=== PATIENT | male | born 1965 ===

== ENCOUNTER 2018-02-05 14:18 | Emergency (ER) | payer BC, MEDICAID ==
[2018-02-05 16:22] LABS: ABS Basophils 0.1 10^3/ul (0-0.2); ABS Eosinophils 0.1 10^3/ul (0-0.6); ABS Lymphocytes 1.9 10^3/ul (1.0-4.8); ABS Monocytes 0.7 10^3/ul (0-0.8); ABS Neutrophils 4.7 10^3/ul (1.5-7.7); ABS Nucleated RBC 0 10^3/ul; Eosinophil % 1.7 % (0-6); Hematocrit 40 % (42-52); Hemoglobin 13.7 g/dl (14.0-18.0); Mean Corpuscular HGB Conc 34 g/dl (31-36); Mean Corpuscular Hemoglobin 29 pg (27-31); Mean Corpuscular Volume 85 fL (80-94); Mean Platelet Volume 8.1 um3 (7.4-10.4); Nucleated Red Blood Cells % 0.1; Platelet Count 225 10^3/ul (150-450); Red Blood Count 4.73 10^6/ul (4.00-5.40); Red Cell Distribution Width 14 % (10.5-15); White Blood Count 7.5 10^3/ul (3.5-10.8)
[2018-02-05 16:30] LABS: INR 0.94 (0.77-1.02)
[2018-02-05 16:56] LABS: EGFR Non-African American 63.6 (>60)
[2018-02-05] MEDS ORDERED: Iohexol 350* (CONTRAST) 500 ML MDV IV ONE (17:01)
--- NOTE | 2018-02-05 17:54 | RAD ---
INDICATION: Headaches COMPARISON: CT brain April 11, 2016 TECHNIQUE: Axial source images were acquired with coronal and sagittal reconstructions. CT angiographic technique was utilized with injection of 80 mL Omnipaque 350. FINDINGS: Aortic arch: There are no gross CT angiogram abnormalities of the arch or the great vessels arising from the arch. There is limited contrast opacification. Right carotid: The common carotid artery, carotid bifurcation, extracranial portions of the internal carotid artery, carotid artery at the skull base, carotid siphon, and carotid termination appear widely patent. There is limited contrast opacification of the common carotid artery. No abnormalities are seen. Left carotid:The common carotid artery, carotid bifurcation, extracranial portions of the internal carotid artery, carotid artery at the skull base, carotid siphon, and carotid termination appear widely patent. There is limited contrast opacification of the common carotid artery. No abnormalities are seen. Right middle and anterior cerebral arteries: There are no CT angiographic abnormalities of the middle or anterior cerebral arteries. Left middle and anterior cerebral arteries: There are no CT angiographic abnormalities of the middle or anterior cerebral arteries Right vertebral: The CT angiographic appearance of the vertebral artery is normal. Left vertebral: The CT angiographic appearance of the vertebral artery is normal. Basilar artery: The basilar artery and basilar tip appear normal. Posterior cerebral arteries: The distal distribution of the right and left posterior cerebral arteries is normal. [place] of [place]: The CT angiographic appearance of the [place] of [place] is normal. Source images show no evidence of mass or adenopathy within the neck. There is chronic maxillary antral and ethmoid sinus disease. There are no focal brain parenchymal abnormalities or abnormal areas of enhancement. IMPRESSION: 1. Normal noncontrast CT of the brain 2. Normal CT angiogram of the head. 3. Limited CT angiogram of the neck below the level of the carotid bifurcations. No gross abnormalities of the great vessels arising from the arch or either common carotid artery. The carotid bifurcations and internal carotid arteries to the skull base are normal bilaterally. 4. Sinusitis. 5. Findings discussed with emergency department. CPT II Codes: 3100F PQRS
[2018-02-05 18:56] VITALS: BP 122/78
--- NOTE | 2018-02-06 06:57 | ED ---
Josef Garcia Angela, scribed for Edilberto Andre MD on 02/05/18 at 1536 . Headache - HPI Summary HPI Summary: This pt is a 52 y/o male presenting to [facility] c/o headache for the past 1 week. Pt states that since Monday his pain has been more constant described as "dull throbbing" with intermittent sharp piercing pain on the right side of his head. He describes his headache as pressure and heaviness behind his right eye. Pt reports it is more comfortable closing right eye than opening it. His pain is worse with laying on the right side. His pain is not aggravated by position change. Additionally pt reports pins and needles around R side of head (which is new for him), more than usual slurred speech, numbness on the right side of his face ("almost like I came off from the dentist"), and "fuzzy" vision. Denies photophobia, nausea, vomiting. He notes he has been reading more than usual and does use reading glasses. Last time he had headaches was during the last week in December. 2 years ago on March 13 pt had an episode where he had sinus infection symptoms and was found to have a brain bleed. His neurologist is Dr. Bowman. Pt was advised if he had similar symptoms he should come to the ED. Pt is currently on 40 mg of Citalopram, 20 mg of Lisinopril, Zinc and D3 vitamins. - History Of Current Complaint Chief Complaint: EDHeadache Stated Complaint: POSSIBLE SINUS INFECTION/PAIN BEHIND EYE Time Seen by Provider: 02/05/18 15:30 Hx Obtained From: Patient Onset/Duration: Started days ago, Still Present Timing: Days Character: Pressure - and heaviness Location of Headache: Temporal - right Aggravating Factor: Other - laying on right side of head Allevating Factors: Nothing Associated Signs And Symptoms: Sinus Pressure - behind R eye, Visual Changes, Other (Noted In Comments) - POS: numbness on R side of face, tingling on R side of head, more than usual slurred speech - Allergies/Home Medications Allergies/Adverse Reactions: Allergies Allergy/AdvReac Type Severity Reaction Status Date / Time Penicillins Allergy Hives Verified 02/05/18 14:24 Home Medications: Home Medications Cholecalciferol (Vitamin D3) [Vitamin D3] 2,000 unit PO DAILY 02/05/18 [History Confirmed 02/05/18] Citalopram Hydrobromide [Citalopram HBr] 40 mg PO DAILY 02/05/18 [History Confirmed 02/05/18] Lisinopril 20 mg PO DAILY 02/05/18 [History Confirmed 02/05/18] Zinc 50 mg PO DAILY 02/05/18 [History Confirmed 02/05/18] PMH/Surg Hx/FS Hx/Imm Hx Endocrine/Hematology History: Denies: Hx Diabetes Cardiovascular History: Reports: Hx Hypertension Denies: Hx Congestive Heart Failure, Hx Deep Vein Thrombosis, Hx Myocardial Infarction, Hx Pacemaker/ICD Musculoskeletal History: Comment Only: Other Musculoskeletal History - arthritis, bursitis Neurological History: Reports: Other Neuro Impairments/Disorders - subdural hematoma - Surgical History Surgery Procedure, Year, and Place: HERNIA SX 2005. Right frontal burrhole with drainage of subdural bleed 02/2016 Infectious Disease History: No Infectious Disease History: Denies: History Other Infectious Disease, Traveled Outside the [place] in Last 30 Days - Family History Known Family History: Positive: Hypertension Family History: Both sisters: migraine headaches - Social History Alcohol Use: Daily Substance Use Type: Reports: None Smoking Status (MU): Current Some Day Smoker Type: Cigars Review of Systems Negative: Fever, Chills Eyes: Other - POS: heaviness behind R eye, fuzzy vision Negative: Photophobia Negative: Vomiting, Nausea Neurological: Other - POS: more than usual slurred speech Positive: Headache, Paresthesia - around R side of head, Numbness - on R side of face All Other Systems Reviewed And Are Negative: Yes Physical Exam - Summary Physical Exam Summary: Appearance: The patient is well-nourished in no acute distress and in no acute pain. Skin: The skin is warm and dry and skin color reflects adequate perfusion. HEENT: The head is normocephalic and atraumatic. Pt is tender on the right temporal area, but I don't feel a cord. The pupils are equal and reactive. The conjunctivae are clear and without drainage. Nares are patent and without drainage. Mouth reveals moist mucous membranes and the throat is without erythema and exudate. The external ears are intact. The ear canals are patent and without drainage. The tympanic membranes are intact. Neck: the neck is supple with full range of motion and non-tender. There are no carotid bruits. There is no neck vein distension. Respiratory: Chest is non-tender. Lungs are clear to auscultation and breath sounds are symmetrical and equal. Cardiovascular: Heart is regular rate and rhythm. There is no murmur or rub auscultated. There is no peripheral edema and pulses are symmetrical and equal. Abdomen: The abdomen is soft and non-tender. There are normal bowel sounds heard in all four quadrants and there is no organomegaly palpated. Musculoskeletal: There is no back tenderness noted. Extremities are non-tender with full range of motion. There is good capillary refill. There is no peripheral edema or calf tenderness elicited. Neurological: Patient is alert and oriented to person, place and time. The patient has symmetrical motor strength in all four extremities. Cranial nerves are grossly intact. Deep tendon reflexes are symmetrical and equal in all four extremities. Psychiatric: The patient has an appropriate affect and does not exhibit any anxiety or depression. Triage Information Reviewed: Yes Vital Signs On Initial Exam: Initial Vitals Temp Pulse Resp BP Pulse Ox 99.0 F 83 16 131/79 97 02/05/18 14:21 02/05/18 14:21 02/05/18 14:21 02/05/18 14:21 02/05/18 14:21 Vital Signs Reviewed: Yes Diagnostics - Vital Signs Vital Signs Temp Pulse Resp BP Pulse Ox 02/05/18 14:21 99.0 F 83 16 131/79 97 - Laboratory Result Diagrams: 02/05/18 16:14 02/05/18 16:14 Lab Statement: Any lab studies that have been ordered have been reviewed, and results considered in the medical decision making process. - CT Head CTA CT Interpretation: No Acute Changes - IMPRESSION: 1. Normal noncontrast CT of the brain. 2. Normal CT angiogram of the head. 3. Limited CT angiogram of the neck below the level of the carotid bifurcations. No gross abnormalities of the great vessels arising from the arch or either common carotid artery. The carotid bifurcations and internal carotid arteries to the skull base are normal bilaterally. 4. Sinusitis. 5. Findings discussed with emergency department. Dr. Andre has reviewed this radiology report. CT Interpretation Completed By: Radiologist Re-Evaluation - Re-Evaluation First Eval Re-Evaluation Time: 18:42 Comment: I reviewed the lab and CTA results with the pt. He will be discharged home. Headache Course/Dx - Course Course Of Treatment: Mr. Blackburn tells me that he has a headache that he used to think was symptoms of sinusitis but one time he presented with a similar headache and was found to have an aneurysm. He he has a mild headache at this time but is concerned that it could be another manifestation of aneurysm. He had a workup here including CTA which was negative except for chronic sinusitis. He was reassured and discharged for follow-up. - Diagnoses Provider Diagnoses: Headache Discharge - Sign-Out/Discharge Documenting (check all that apply): Discharge/Admit/Transfer - Discharge - Discharge Plan Condition: Stable Disposition: HOME Patient Education Materials: General Headache (ED) Referrals: Prachi Bullock MD [Primary Care Provider] - Additional Instructions: Please follow up with your primary care provider in 2-3 days. RETURN TO THE ED FOR ANY WORSENING SYMPTOMS. - Billing Disposition and Condition Condition: STABLE Disposition: Home The documentation as recorded by the Josef kelley Angela, SCRIBE accurately reflects the service I personally performed and the decisions made by me, Edilberto Andre MD.
== END 2018-02-05 18:54 | disposition home or self-care (01) ==
LOC: ED 14:18
DX: R51 Headache (principal); I10 Essential (primary) hypertension; J32.9 Chronic sinusitis, unspecified; F17.290 Nicotine dependence, other tobacco product, uncomplicated; Z79.899 Other long term (current) drug therapy; Z88.0 Allergy status to penicillin
CPT/HCPCS: 36415; 70496; 70498; 80053; 83605; 85025; 85610; 85652; 99282; Q9967